=== PATIENT | female | born 1990 ===

== ENCOUNTER 2017-06-10 06:32 | Emergency (ER) | payer OTHER ==
[2017-06-10] MEDS ORDERED: methylPREDNISolone Sodium Succinate 125 MG/2 ML SDV IVPUSH ONE (06:35)
[2017-06-10] MEDS ORDERED: Albuterol/Ipratropium 3.0-0.5 MG/3 ML Neb Soln NEB ONE (06:35)
[2017-06-10] MEDS ORDERED: Sodium Chloride 0.9% 1,000 ML IV ONE (06:36)
--- NOTE | 2017-06-10 06:36 | EDM.PDOC ---
<Stanley Castillo J - Last Filed: 06/10/17 06:34> ED HPI GENERAL MEDICAL PROBLEM - General Stated Complaint: ASTHMA ATTACK Time Seen by Provider: 06/10/17 06:34 - History of Present Illness INITIAL COMMENTS - FREE TEXT/NARRATIVE: HISTORY AND PHYSICAL: History of present illness: Patient is 27-year-old female with history of asthma who ran out of her medications and presents with a concern of asthmatic exacerbation former shortness of breath and wheezing she denies chest pain nausea vomiting fever chills or other complaints. Patient denies intubation or ICU admission Review of systems: As per history of present illness and below otherwise all systems reviewed and negative. Past medical history: As per history of present illness and as reviewed below otherwise noncontributory. Surgical history: As per history of present illness and as reviewed below otherwise noncontributory. Social history: No reported history of drug or alcohol abuse. Family history: As per history of present illness and as reviewed below otherwise noncontributory. Physical exam: HEENT: Atraumatic, normocephalic, pupils reactive, negative for conjunctival pallor or scleral icterus, mucous membranes moist, throat clear, neck supple, nontender, trachea midline. Lungs: Diminished with scattered inspiratory neck scar wheezing bilaterally moderate distress, breath sounds equal bilaterally, chest nontender. Heart: S1S2, regular, negative for clicks, rubs, or JVD. Abdomen: Soft, nondistended, nontender. Negative for masses or hepatosplenomegaly. Negative for costovertebral tenderness. Pelvis: Stable nontender. Genitourinary: Deferred. Rectal: Deferred. Extremities: Atraumatic, negative for cords or calf pain. Neurovascular unremarkable. Neuro: Awake, alert, oriented. Cranial nerves II through XII unremarkable. Cerebellum unremarkable. Motor and sensory unremarkable throughout. Exam nonfocal. Diagnostics: Deferred Therapeutics: Albuterol ipratropium nebulizer Solu-Medrol 125 mg IV saline 1 L bolus Impression: #1 acute asthmatic exacerbation Definitive disposition and diagnosis as appropriate pending reevaluation and review of above. - Related Data Allergies Allergy/AdvReac Type Severity Reaction Status Date / Time No Known Allergies Allergy Verified 06/10/17 06:36 Home Meds: Home Meds Albuterol Sulfate [Proventil Hfa] 1 puff INH ASDIRECTED 06/10/17 [History] ED ROS GENERAL - Review of Systems Review Of Systems: ROS reveals no pertinent complaints other than HPI. ED EXAM, GENERAL - Physical Exam Exam: See Below (The dictation) Course - Vital Signs Last Recorded V/S: Last Vital Signs Temp 98 F 06/10/17 06:32 Pulse 110 H 06/10/17 06:32 Resp 36 H 06/10/17 06:32 BP 124/66 06/10/17 06:32 Pulse Ox 99 06/10/17 06:32 - Orders/Labs/Meds Orders: Active Orders 24 hr Category Date Time Status RT Aerosol Therapy [RC] ASDIRECTED Care 06/10/17 06:35 Active Sodium Chloride 0.9% [Normal Saline] 1,000 ml Med 06/10/17 06:36 Active IV .Bolus Medication Orders Sodium Chloride (Normal Saline) 1,000 mls @ 999 mls/hr IV .Bolus ONE Stop: 06/10/17 07:36 Last Admin: 06/10/17 06:46 Dose: 999 mls/hr Meds: Medications Generic Name Dose Route Start Last Admin Trade Name Freq PRN Reason Stop Dose Admin Sodium Chloride 1,000 mls @ 999 mls/hr 06/10/17 06:36 06/10/17 06:46 Normal Saline IV 06/10/17 07:36 999 mls/hr .Bolus ONE Administration Discontinued Medications Generic Name Dose Route Start Last Admin Trade Name Freq PRN Reason Stop Dose Admin Albuterol/Ipratropium 3 ml 06/10/17 06:35 06/10/17 06:44 Duoneb 3.0-0.5 Mg/3 Ml NEB 06/10/17 06:36 3 ml ONETIME ONE Administration Methylprednisolone Sodium Succinate 125 mg 06/10/17 06:35 06/10/17 06:40 Solu-Medrol IVPUSH 06/10/17 06:36 125 mg ONETIME ONE Administration Departure - Departure Disposition: Home, Self-Care 01 Clinical Impression: Exacerbation of asthma - Discharge Information Referrals: PCP,None [Primary Care Provider] - Additional Instructions: Medication as prescribed Return if symptoms persist or worsen Follow-up with primary care and establish in the clinic [facility] [address] [place] [id number] The following information is given to patients seen in the emergency department who are being discharged to home. This information is to outline your options for follow-up care. We provide all patients seen in our emergency department with a follow-up referral. The need for follow-up, as well as the timing and circumstances, are variable depending upon the specifics of your emergency department visit. If you don't have a primary care physician on staff, we will provide you with a referral. We always advise you to contact your personal physician following an emergency department visit to inform them of the circumstance of the visit and for follow-up with them and/or the need for any referrals to a consulting specialist. The emergency department will also refer you to a specialist when appropriate. This referral assures that you have the opportunity for follow-up care with a specialist. All of these measure are taken in an effort to provide you with optimal care, which includes your follow-up. Under all circumstances we always encourage you to contact your private physician who remains a resource for coordinating your care. When calling for follow-up care, please make the office aware that this follow-up is from your recent emergency room visit. If for any reason you are refused follow-up, please contact the [facility] emergency department at and asked to speak to the emergency department charge nurse. <Yovany Stanley - Last Filed: 06/10/17 07:16> ED HPI GENERAL MEDICAL PROBLEM - History of Present Illness INITIAL COMMENTS - FREE TEXT/NARRATIVE: I've seen and examined the patient above, she is doing very well she states she is at her baseline wheezing shortness of breath or stridor No chest pain headache dizziness palpitation no bowel or urine symptoms no fever nausea vomiting chills sweats HEENT grossly within normal limits Chest clear throughout no wheeze CV regular rate and rhythm Abdomen benign Extremities four-inch motion no edema GERONTOLOGY AIDE alert Nonfocal Diagnostics Deferred Therapeutics DuoNeb one box approximately 40 count Albuterol HFA Impression Asthma exacerbation resolved Patient at baseline Definitive disposition and diagnosis as appropriate pending reevaluation and review of above Departure - Departure Time of Disposition: 07:16 Condition: Good
== END 2017-06-10 07:35 | disposition home or self-care (01) ==
LOC: MW.ED 06:32
DX: J45.901 Unspecified asthma with (acute) exacerbation (principal)
CPT/HCPCS: 94640; 96361; 96374; 99283; J2930; J7040